=== PATIENT | male | born 1950 | race Caucasian/White ===

== ENCOUNTER 2018-12-17 15:46 | Emergency (ER) | payer MEDICARE, OTHER ==
[~2018-12-17] VITALS: Ht 185.4 cm; Wt 96.0 kg
[~2018-12-17 15:46] MED LIST: DABI150C PO; HYDR-3240 PO; METO25TA35 PO; METO25TA91 PO
[2018-12-17] MEDS ORDERED: DIPH,PERTUSS(ACELL),TET VAC/PF 0.5 ML IM-VACC ONE ×2 (16:17→16:30)
[2018-12-17] MEDS ORDERED: LIDOCAINE-MPF 1%, 5ML INFIL ONE (16:30)
[2018-12-17] MEDS ORDERED: ASPIRIN 81 MG TABLET CHEW PO ONE (17:00)
[2018-12-17] MEDS ORDERED: RIVAROXABAN 20 MG TABLET PO ONE (17:00)
--- NOTE | 2018-12-17 17:05 | NUR ---
REPORT RECEIVED FROM COURTNEY OLVERA, ASSUMING CARE OF PT. CURRENTLY PT IN RAD
[2018-12-17 17:17] LABS: BASOPHILS # (AUTO) 0.06 x10^3/uL (0-0.1); BASOPHILS % (AUTO) 1 % (0-1); EOSINOPHILS % (AUTO) 1 % (1-7); LYMPHOCYTES # (AUTO) 1.32 x10^3/uL (1-3.4); LYMPHOCYTES % (AUTO) 14 % (22-44); MD NO; MEAN CORPUSCULAR HEMOGLOBIN 28.6 pg (27.5-34.5); MEAN CORPUSCULAR HGB CONC 32.5 g/dL (33.2-36.2); MEAN CORPUSCULAR VOLUME 87.8 fL (81-97); MEAN PLATELET VOLUME 8.8 fL (7.4-10.4); MONOCYTES # (AUTO) 0.72 x10^3/uL (0.2-0.8); MONOCYTES % (AUTO) 7 % (2-9); NEUTROPHILS # (AUTO) 7.63 x10^3/uL (1.8-6.8); NEUTROPHILS % (AUTO) 78 % (42-75); PLATELET COUNT 295 x10^3/uL (130-400); RED BLOOD COUNT 5.62 x10^6/uL (4.38-5.82); RED CELL DISTRIBUTION WIDTH 14.2 % (9.4-14.8)
[2018-12-17 17:22] LABS: ALBUMIN 3.8 g/dL (3.4-5.0); ANION GAP 8 mmol/L (5-15); CALCIUM 9.3 mg/dL (8.5-10.1); CHLORIDE 106 mmol/L (98-107); CREATININE 1.45 mg/dL (0.7-1.3)
[2018-12-17 17:26] LABS: TROPONIN I < 0.015 ng/mL (0.000-0.045)
--- NOTE | 2018-12-17 17:49 | NUR ---
TASK RN: PT PIV PLACED AT THIS TIME.
[2018-12-17 17:52] VITALS: BP 137/96
[2018-12-17] MEDS ORDERED: RIVAROXABAN 20 MG TABLET ONE (17:54)
[2018-12-17] MEDS ORDERED: ASPIRIN 81 MG TABLET CHEW ONE (17:54)
--- NOTE | 2018-12-17 18:09 | NUR ---
MD TO BEDSIDE TO RECHECK PT AND UPDATE ON POC.
== END 2018-12-17 18:17 | disposition home or self-care (01) ==
LOC: ED 17:46
DX: S61.204A Unspecified open wound of right ring finger without damage to nail, initial encounter (principal); I48.0 Paroxysmal atrial fibrillation; W22.8XXA Striking against or struck by other objects, initial encounter; Y93.89 Activity, other specified; Y92.89 Other specified places as the place of occurrence of the external cause; Y99.8 Other external cause status
CPT/HCPCS: 12001; 36415; 71046; 80048; 82040; 84484; 85025; 90471; 90715; 93005

== ENCOUNTER 2019-02-05 15:34 | Outpatient (CLI) | payer MEDICARE, OTHER | END 2019-02-05 23:59 | disposition home or self-care (01) | LOC: CVU 15:34 | PROVIDERS: ATTEND Internal Medicine Cardiovascular Disease | DX: I08.8 Other rheumatic multiple valve diseases (principal); I48.91 Unspecified atrial fibrillation; I10 Essential (primary) hypertension; Z87.891 Personal history of nicotine dependence | CPT/HCPCS: 93306 ==

== ENCOUNTER 2019-03-04 08:37 | Day surgery (SDC) | payer MEDICARE, OTHER ==
[~2019-03-04] VITALS: Ht 188 cm; Wt 90.9 kg
[2019-03-04 09:03] VITALS: BP 124/87
== END 2019-03-04 11:20 | disposition home or self-care (01) ==
LOC: CACL 08:37
PROVIDERS: ATTEND Internal Medicine Cardiovascular Disease
DX: I48.2 Chronic atrial fibrillation (principal); I42.9 Cardiomyopathy, unspecified; E66.3 Overweight; Z68.26 Body mass index [BMI] 26.0-26.9, adult; Z72.89 Other problems related to lifestyle; Z87.891 Personal history of nicotine dependence; Z79.01 Long term (current) use of anticoagulants; Z79.82 Long term (current) use of aspirin; Z79.899 Other long term (current) drug therapy; Z88.0 Allergy status to penicillin; Z82.49 Family history of ischemic heart disease and other diseases of the circulatory system
CPT/HCPCS: 36415; 80048; 85610; 92960; J2704

== ENCOUNTER 2019-06-20 10:16 | Day surgery (SDC) | payer MEDICARE ==
[~2019-06-20] VITALS: Ht 188 cm; Wt 90.9 kg
[~2019-06-20 10:16] MED LIST changes: +APIX2.5T PO; +METO25TA2 PO; +RAMI2.5C2 PO
[2019-06-20 10:46] VITALS: BP 120/76
[2019-06-20 11:10] LABS: ANION GAP 6 mmol/L (5-15); CALCIUM 9.1 mg/dL (8.5-10.1); CHLORIDE 110 mmol/L (98-107)
[2019-06-20] MEDS ORDERED: SODIUM CHLORIDE 0.9% 1,000 ML IV ONE (11:30)
[2019-06-20] MEDS ORDERED: PROPOFOL 10 MG/ML, 50ML ONE (11:56)
[2019-06-20] MEDS ORDERED: APIX5TAB PO (12:08)
== END 2019-06-20 13:26 | disposition home or self-care (01) ==
LOC: CACL 10:16
PROVIDERS: ATTEND Internal Medicine Cardiovascular Disease
DX: I48.91 Unspecified atrial fibrillation (principal); I34.0 Nonrheumatic mitral (valve) insufficiency; E78.5 Hyperlipidemia, unspecified; I10 Essential (primary) hypertension; E11.9 Type 2 diabetes mellitus without complications; I42.9 Cardiomyopathy, unspecified; Z87.891 Personal history of nicotine dependence; Z88.0 Allergy status to penicillin; Z82.49 Family history of ischemic heart disease and other diseases of the circulatory system; Z98.890 Other specified postprocedural states; Z79.899 Other long term (current) drug therapy
CPT/HCPCS: 36415; 80048; 92960; 93312; 93321; 93325; J2704